=== PATIENT | male | born 1975 | race African-American/Black ===

== ENCOUNTER 2022-09-01 16:02 | Outpatient (REF) | payer SELFPAY ==
[2022-09-01 17:41] LABS: MANUAL DIFF FLAG NO
[2022-09-01 17:51] LABS: Basophils Absolute Auto 0.1 X10*3/uL (0.0-0.2); Eosinophils Absolute Auto 0.3 X10*3/uL (0.0-0.4); Eosinophils Percent Auto 6.9 % (0-4); Hematocrit 38.6 % (42.0-52.0); Hemoglobin 12.8 g/dl (14.0-18.0); Imm Gran Abs Auto 0.01 X10*3/uL (0.00-0.03); Imm Gran Pct Auto 0.2 % (0.0-0.4); Lymphocytes Absolute Auto 1.7 X10*3/uL (1.2-4.9); Lymphocytes Percent Auto 33.4 % (20-40); Mean Corpuscular HGB Conc 33.2 g/dl (31.0-36.0); Mean Corpuscular Hemoglobin 32.2 pg (27.0-33.0); Mean Corpuscular Volume 97.2 fL (80.0-98.0); Mean Platelet Volume 11.1 fL (9.4-12.4); Monocytes Absolute Auto 0.7 X10*3/uL (0.1-1.2); Monocytes Percent Auto 13.4 % (2-11); Neutrophils Absolute Auto 2.2 x10*3/uL (2.0-8.3); Neutrophils Percent Auto 45.1 % (45-73); Platelet Count 142 X10*3/uL (160-400); Red Blood Count 3.97 X10*6/uL (4.60-5.80); Red Cell Distribution Width 11.3 % (11.0-16.0); White Blood Count 4.9 X10*3/uL (4.8-10.8)
[2022-09-01 18:14] LABS: Anion Gap 14 (12-20); Blood Urea Nitrogen 15 mg/dL (9-16); Calcium 9.9 mg/dL (8.4-10.2); Carbon Dioxide 28 mmol/L (22-29); Chloride 102 mmol/L (96-108); Cholesterol 153 mg/dL; Estimated Glomerular Filt Rate > 60; Glucose Random 100 mg/dL (60-115); HDL Cholesterol 40 mg/dL; LDL Cholesterol Calculated 98 mg/dl; Potassium 4.2 mmol/L (3.3-5.1); Sodium 140 mmol/L (135-145); Triglycerides 78 mg/dL
[2022-09-01 18:29] LABS: Free T4 (Free Thyroxine) 1.08 ng/dL (0.71-1.85); Vitamin D 25-OH Total 24.5 ng/mL (>30)
[2022-09-03 06:19] LABS: ~HepC Num1 13.83 S/CO (0.00-0.79); ~Hepatitis C Antibody Reactive (Nonreactive)
[2022-09-03 06:20] LABS: HIV AB/AG Nonreactive (Nonreactive); HIV Num 1 0.05 S/CO (0.00-0.99)
[2022-09-04 15:29] LABS: HCV Log PCR <1.18 NOT DETECTED Log IU/mL (NOT DETECTED); HepC Viral Load <15 NOT DETECTED IU/mL (NOT DETECTED)
== END 2022-09-01 16:03 | disposition home or self-care (01) ==
LOC: HO.HHCL 16:02
PROVIDERS: Visit Provider Family Medicine
DX: R63.6 Underweight (principal); F11.20 Opioid dependence, uncomplicated; D61.818 Other pancytopenia
CPT/HCPCS: 36415; 80048; 80061; 82306; 84439; 85025; 86803; 87389; 87522

== ENCOUNTER 2024-07-13 11:15 | Outpatient (REF) | payer SELFPAY ==
--- OUTSIDE RECORDS SUMMARY | 2024-07-13 11:19 | XMS_ITS | Encounter Summary ---
Author Organization [employer] Address [address] [place] [address] Care Team Providers Care Research Assistant Professor Name Role Phone Abi Barraza MD Primary Care Provider + [phone] Jameson Huerta MD Unavailable [phone] Reason for Visit * Reason Comments Med Refill Encounter Details Date Type Department Care Team ([facility] st Contact Info) Description 02/08/2023 Refill [facility] MEDICINE [address] [place], [place] [phone] Jameson Huerta MD [address] [place], [place] [phone] Uncomplicated opioid dependence (CMS/HCC) Social History Tobacco Use Types Packs/Day Years Used Date Smoking Tobacco: Every Day Cigarettes Passive Smoke Exposure: Current Smokeless Tobacco: Never Sex and Gender Information Value Date Recorded Sex Assigned at Male 12/21/2021 10:19 AM EDT Legal Sex Male 10:19 AM EDT Gender Identity Male 12/21/2021 10:19 AM EDT Sexual Orientation Straight 12/21/2021 10 :19 AM EDT documented as of this encounter Plan of Treatment Not on file documented as of this encounter Visit Diagnoses Diagnosis Uncomplicated opioid dependence (CMS/HCC) documented in this encounter Care Teams Research Assistant Professor Relationship Specialty Start Date End Date Abi Barraza MD [address] [place], [place] [phone] PCP - General Family Medicine 03/09/13 Jameson Huerta MD [address] [place] [address] Referring Physician Addiction Medicine 04/02/24 documented as of this encounter
[2024-07-13 13:22] LABS: MANUAL DIFF FLAG NO
[2024-07-13 13:39] LABS: Basophils Percent Auto 0.7 % (0-2); Eosinophils Absolute Auto 0.1 X10*3/uL (0.0-0.4); Eosinophils Percent Auto 2.4 % (0-4); Hematocrit 39.5 % (42.0-52.0); Hemoglobin 13.3 g/dl (14.0-18.0); Lymphocytes Absolute Auto 1.6 X10*3/uL (1.2-4.9); Mean Corpuscular HGB Conc 33.7 g/dl (31.0-36.0); Mean Corpuscular Hemoglobin 32.5 pg (27.0-33.0); Mean Corpuscular Volume 96.6 fL (80.0-98.0); Mean Platelet Volume 11.5 fL (9.4-12.4); Monocytes Absolute Auto 0.5 X10*3/uL (0.1-1.2); Monocytes Percent Auto 11.3 % (2-11); Neutrophils Absolute Auto 2.3 x10*3/uL (2.0-8.3); Neutrophils Percent Auto 50.6 % (45-73); Platelet Count 141 X10*3/uL (160-400); Red Blood Count 4.09 X10*6/uL (4.60-5.80); Red Cell Distribution Width 11.3 % (11.0-16.0); White Blood Count 4.5 X10*3/uL (4.8-10.8)
[2024-07-13 14:12] LABS: Alanine Aminotransferase 16 U/L (0-40); Albumin Level 4.6 g/dL (3.5-5.0); Alkaline Phosphatase 57 U/L (39-117); Anion Gap 11 (12-20); Aspartate Amino Transferase 24 U/L (5-37); Bilirubin Direct 0.3 mg/dL (0.0-0.5); Bilirubin Total 0.8 mg/dL (0.0-1.0); Blood Urea Nitrogen 13 mg/dL (9-16); Carbon Dioxide 29 mmol/L (22-29); Chloride 105 mmol/L (96-108); Cholesterol 153 mg/dL (<200); Estimated Glomerular Filt Rate > 60; Glucose Random 84 mg/dL (60-115); HDL Cholesterol 40 mg/dL (>40); Iron 186 mcg/dL (45-160); LDL Cholesterol Calculated 100 mg/dL (<100); Percent Iron Saturation 59 % (15-50); Potassium 4.5 mmol/L (3.3-5.1); Sodium 140 mmol/L (135-145); Total Iron Binding Capacity 313 mcg/dL (228-428); Total Protein 7.5 g/dL (6.5-8.0); Triglycerides 65 mg/dL (<150); Unsaturated Iron Binding 127 ug/dL
[2024-07-13 14:31] LABS: Ferritin 181 ng/mL (20-250); TSH reflex Free T4 1.58 uIU/mL (0.32-4.0)
[2024-07-13 14:34] LABS: Vitamin B12 583 pg/mL (200-900)
[2024-07-13 15:00] LABS: CT PCR NOT DETECTED (Not Detect.); NG PCR NOT DETECTED (Not Detect.)
[2024-07-16 08:21] LABS: HIV AB/AG Nonreactive (Nonreactive); HIV Num 1 0.05 S/CO (0.00-0.99)
[2024-07-17 11:13] LABS: Alpha Fetoprotein 1.7 ng/mL (<6.1)
== END 2024-07-13 11:16 | disposition home or self-care (01) ==
LOC: HO.HHCL 11:15
PROVIDERS: Visit Provider Family Medicine
DX: Z13.220 Encounter for screening for lipoid disorders (principal); D64.9 Anemia, unspecified; R76.8 Other specified abnormal immunological findings in serum; Z13.6 Encounter for screening for cardiovascular disorders
CPT/HCPCS: 80048; 80061; 80076; 82105; 82607; 82728; 82746; 83540; 84443; 85025; 87389; 87491; 87591

== ENCOUNTER 2024-11-14 14:39 | Outpatient (AMB) | payer SELFPAY ==
--- NOTE | 2024-11-14 14:42 | A.OFFVIS_ITS ---
Vital Signs 3 11/14/24 14:45 Height 6 ft Weight 148 lb 9.465 oz BMI 20.2 BP 120/82 Blood Pressure Location Lt brachial Position Sitting Pulse 65 Intake Visit Reasons: colo screening Intake Note: New patient in office today for colonoscopy screening. CC: Patient reports having constipation. Denies having other GI symptoms today. Director Investment Banking Required: Yes Accompanied by: Self / Same As Patient Allergies No Known Allergies (No Known Allergies*) Allergy (Verified 11/14/24 14:47) HPI HPI colo screening: Details: 49-year-old male here for preprocedural meeting to discuss a screening colonoscopy. He is referred by [facility]. PMX History of opioid dependence -on Suboxone History of hepatitis-C infection status post SVR Constipation Erectile dysfunction Pancytopenia * SURGICAL HISTORY CHOLECYSTECTOMY-LATIA * ALLERGIES: NKDA * Sabirmedical LABS: Laboratory Tests 07/13/24 11:17 WBC 4.5 L Hgb 13.3 L Hct 39.5 L MCV 96.6 MCH 32.5 Plt Count 141 L Estimated GFR > 60 Total Bilirubin 0.8 Direct Bilirubin 0.3 AST 24 ALT 16 Alkaline Phosphatase 57 TSH 1.58 TODAY'S VISIT [facility] #[id number] This is his first colonoscopy Bowel or upper GI problems: CIC ? roids and occasional rectal bleeding no upper GI problems. His constipation is severe he will frequently go more than a week without moving his bowels and when he does he has to strain. Even then he has scant return a very small hard stools. In the past he has tried senna and Colace which worked at 1st but then stopped being effective for him. He has never tried bisacodyl. I will give him a trial of this and also provide him a hemorrhoid cream for his rectal itching and instructed him how to use it with the rectal applicator to get the best sustained results. Problems with anes or sed: On Suboxone no prior problems with anesthesia or sedation. Cardiac or respiratory problems. He denies any problems ID problems. He has a history of hepatitis-C but is status post treatment with sustained viral response. FHX: No known family history of colon cancer or polyps. [facility] Medical History (Updated 11/14/24 @ 17:59 by LLUVIA Hirsch) Constipation Surgical History (Updated 11/09/24 @ 10:55 by LLUVIA Hirsch) History of cholecystectomy Social History (Updated 11/14/24 @ 14:50 by ALEXANDRA Krueger) Alcohol intake: current Alcohol intake frequency: holidays/special occasions only Patient Tobacco Use Status: Current everyday Tobacco user Cigarettes Per Day: 5 Years Smoked: 20 + Substance Use Type: Marijuana Review of Systems Const Denies fatigue, Denies fever(s), Denies night sweats, Denies poor appetite and Denies weight loss ENT Reports Normal hearing present, Denies dental pain, Denies dysphagia, Denies hearing loss, Denies mouth pain, Denies odynophagia, Denies throat swelling, Denies tongue swelling and Reports other (Dentition adequate) Card Reports no additional complaints Resp Reports no additional complaints GI Details: Rectal itching Denies abdominal pain, Denies melena, Denies bloating, Reports hematochezia, Reports constipation, Denies GI cramping, Denies dysphagia, Denies excessive flatus, Denies early satiety, Denies heartburn, Denies diarrhea, Denies nausea, Denies odynophagia, Denies vomiting and Denies hematemesis Skin/Breast Denies pruritus, Denies lesions, Denies rash and Denies jaundice Neuro Reports Normal hearing present and Denies Abnormal speech present Endo Denies fatigue Aller/Immun Denies throat swelling and Denies tongue swelling Physical Exam Vital Signs: Last Vital Signs Pulse 65 11/14/24 14:45 BP 120/82 11/14/24 14:45 BMI result Body Mass Index 20.2 Const General: cooperative, no acute distress, well developed and well groomed Nutritional Appearance: well nourished and thin Orientation/consciousness: oriented to person, oriented to place and oriented to time Limitations: language barrier HEENT Head: Yes normocephalic and Yes atraumatic Eyes General: appearance normal, both eyes and all related structures Pupils: Equal, round and reactive pupils present Neck Neck: Yes normal visual inspection and Yes no lymphadenopathy Thyroid: Thyroid normal Resp Effort & Inspection: normal respiratory effort and able to speak in complete sentences Auscultation: clear to auscultation bilaterally Cardio Rate: regular rate Rhythm: regular rhythm Heart sounds: Normal, physiologic split S2 sound present Peripheral pulses: radial pulses present and posterior tibial pulses present GI Inspection: No distended and No Abdominal panniculus present Palpation (GI): Soft to palpation, nontender, no guarding, not rigid and No hepatosplenomegaly present Percussion: Yes normal to percussion Auscultation: normal bowel sounds Rectal Exam - Male: Yes deferred Abdomen image: 2 1. surgical scars 2. Skin General skin exam: no rashes or lesions noted, turgor normal, skin not dry, no jaundice, No spider nevi and no striae Rashes: no rashes Nails: normal Neuro General: oriented to person, oriented to place and oriented to time Cranial nerves: Yes Equal, round and reactive pupils present and Yes Normal hearing present Speech: No Abnormal speech present Extrem General: Yes normal to inspection, No clubbing, No cyanosis and No edema Psych Appearance: grossly normal and well kempt Mental Status: mental status grossly normal Speech and movement: Normal speech and movement present Affect: normal affect Attitude: cooperative Thought process: Normal thought process present and not confabulating Thought content: Normal thought content present Insight: Fair insight present (Psych) Judgement: Fair judgement present (Psych) Assessment & Plan Assessment & Plan (1) Pre-op examination: Code(s): Z01.818 - Encounter for other preprocedural examination Category: Medical (2) Chronic idiopathic constipation: Code(s): K59.04 - Chronic idiopathic constipation Category: Medical (3) Opioid dependence on agonist therapy: Comment: ON SUBOXONE Code(s): F11.20 - Opioid dependence, uncomplicated Category: Medical Plan [facility] #[id number] This is his first colonoscopy Bowel or upper GI problems: CIC ? roids and occasional rectal bleeding no upper GI problems. His constipation is severe he will frequently go more than a week without moving his bowels and when he does he has to strain. Even then he has scant return a very small hard stools. In the past he has tried senna and Colace which worked at 1st but then stopped being effective for him. He has never tried bisacodyl. I will give him a trial of this and also provide him a hemorrhoid cream for his rectal itching and instructed him how to use it with the rectal applicator to get the best sustained results. Problems with anes or sed: On Suboxone no prior problems with anesthesia or sedation. Cardiac or respiratory problems. He denies any problems ID problems. He has a history of hepatitis-C but is status post treatment with sustained viral response. FHX: No known family history of colon cancer or polyps. We will work on his constipation since this would impact his ability to clear for colonoscopy and also what assure him better quality of life. Return office visit in 4 weeks Orders: Referrals 2 GI Procedure Notification Z01.818 - Encounter for other preprocedural examination Medications: New 2 hydrocortisone 2.5% (Proctosol HC) BE SURE TO INCLUDE RECTAL APPICATOR!! 1 appl MT BID 30 grams 6RF hemorrhoids K64.9 - Unspecified hemorrhoids peg 3350-electrolytes 236-22.74-6.74 -5.86 gram (Golytely) until fecal effluent is clear; do not exceed a total volume of 2,000 mL 240 mL PO Q10M 4,000 mL 0RF 1 day Z12.11 - Encounter for screening for malignant neoplasm of colon bisacodyl (Dulcolax (bisacodyl)) 10 mg (2 x 5 mg) PO BEDTIME 2 days 4 tabs 0RF bisacodyl (Dulcolax (bisacodyl)) 10 mg (2 x 5 mg) PO BEDTIME 60 tabs 6RF 30 days Coding Level of Care Code New Pt Level 3 (04535) Diagnoses Pre-op examination Z01.818 Chronic idiopathic constipation K59.04 Opioid dependence on agonist therapy F11.20
[2024-11-14 14:45] VITALS: BP 120/82; PULSE 65; BMI 20.2
--- OUTSIDE RECORDS SUMMARY | 2024-11-14 17:13 | XMS_ITS | Encounter Summary ---
Author Organization [employer] Address [address] [place] [address] Care Team Providers Care Virtualization Consultant Name Role Phone Abi Barraza MD Primary Care Provider + [phone] Jameson Huerta MD Unavailable [phone] Reason for Visit * Reason Comments Med Refill Encounter Details Date Type Department Care Team ([facility] st Contact Info) Description 09/26/2023 Refill [facility] MEDICINE [address] [place], [place] [phone] Jameson Huerta MD [address] [place], [place] [phone] Uncomplicated opioid dependence (CMS/HCC) Social History Tobacco [...] (CMS/HCC) documented in this encounter Care Teams Virtualization Consultant Relationship Specialty Start Date End Date Abi Barraza MD [address] [place], [place] [phone] PCP - General Family Medicine 03/09/13 Jameson Huerta MD [address] [place] [address] Referring Physician Addiction Medicine 04/02/24 documented as of this encounter
--- OUTSIDE RECORDS SUMMARY | 2024-11-14 17:13 | XMS_ITS | Encounter Summary ---
Author Organization [employer] Address [address] [place] [address] Care Team Providers Care Windows Vmware Engineer Name Role Phone Abi Barraza MD Primary Care Provider + [phone] Jameson Huerta MD Unavailable [phone] Reason for Visit * Reason Comments Med Refill Encounter Details Date Type Department Care Team ([facility] st Contact Info) Description 12/14/2022 Refill [facility] MEDICINE [address] [place], [place] [phone] Jameson Huerta MD [address] [place], [place] [phone] Uncomplicated opioid dependence (CMS/HCC) Social History Tobacco [...] (CMS/HCC) documented in this encounter Care Teams Windows Vmware Engineer Relationship Specialty Start Date End Date Abi Barraza MD [address] [place] [address] PCP - General Family Medicine 03/09/13 Jameson Huerta MD [address] [place] [address] Referring Physician Addiction Medicine 04/02/24 documented as of this encounter
--- OUTSIDE RECORDS SUMMARY | 2024-11-14 17:13 | XMS_ITS | Encounter Summary ---
Author Organization [email or web address] Address [address] [place] [address] Care Team Providers Care Plater Printed Circuit Board Panels Name Role Phone Abi Barraza MD Primary Care Provider + [phone] Jameson Huerta MD Unavailable [phone] Reason for Visit * Reason Comments Med Refill Encounter Details Date Type Department Care Team ([facility] st Contact Info) Description 02/08/2023 Refill [facility] MEDICINE [address] [place], [place] [phone] Jameson Huerta MD [address] [place], [place] [phone] Uncomplicated opioid dependence (CMS/HCC) Social History Tobacco [...] (CMS/HCC) documented in this encounter Care Teams Plater Printed Circuit Board Panels Relationship Specialty Start Date End Date Abi Barraza MD [address] [place], [place] [phone] PCP - General Family Medicine 03/09/13 Jameson Huerta MD [address] [place] [address] Referring Physician Addiction Medicine 04/02/24 documented as of this encounter
--- OUTSIDE RECORDS SUMMARY | 2024-11-14 17:13 | XMS_ITS | Clinical Summary ---
Author Organization [employer] Address [address] [place] [address] [address] [place] [address] Care Team Providers Care Stitching Department Supervisor Name Role Phone Abi Barraza MD Primary Care Provider [phone] Jameson Huerta MD Unavailable [phone] Allergies No known active allergies Medications buprenorphine-nalo xone (Suboxone) 2-0.5 MG per sublingual filmIndications:Un complicated opioid dependence (CMS/HCC) Place 1 Film under the tongue Once per day. Take as directed. 21 Film 1 07/27/19 24 Active naloxone (Narcan) 4 mg/0.1 mL nasal sprayIndications:U ncomplicated opioid dependence (CMS/HCC) Administer 1 spray (4 mg) into affected nostril(s) if needed for opioid reversal. 2 each 1 07/14/19 25 Active Multiple Vitamin (multivitamin) tabletIndications: Dietary counseling Take 1 tablet by mouth Once per day. 90 tablet 3 07/14/19 25 Active erythromycin (Romycin) 5 MG/GM ophthalmic ointmentIndication s:Acute conjunctivitis of both eyes, unspecified acute conjunctivitis type Apply to affected eye(s) 3 times daily for 7 days. Apply Amount per Dose: 0.25 inch (~0.5 cm) per dose. 3.5 g 11/02/19 25 025 Active Problems Problem Noted Date Diagnosed Date Tobacco use disorder 07/13/2024 Overview (07/13/2024): -Cigg/day: 5 cigarettes/day -Age started: -Total years smoking: -Pack year history: Encouraged smoking cessation resources such as pharmacomtherapy, [facility] smoking cessation group, and [facility] pharmacy smoking cessation clinic [facility]ed [facility] annual lung cancer screening with low dose CT in people who meet the following criteria: -ages 50 to 80 years. -have a 20 pack-year smoking history. -currently smoke cigarettes or quit within the past 15 years. -LDCT: Will evaluate at 50 years of age. Assessment & Plan (07/13/2024 4:33 PM EDT): -Cigg/day: 5 cigarettes/day -Age started: -Total years smoking: -Pack year history: Encouraged smoking cessation resources such as pharmacomtherapy, [facility] smoking cessation group, and [facility] pharmacy smoking cessation clinic Discussed [facility] recommends annual lung cancer screening with low dose CT in people who meet the following criteria: -ages 50 to 80 years. -have a 20 pack-year smoking history. -currently smoke cigarettes or quit within the past 15 years. -LDCT: Will evaluate at 50 years of age. Screening cholesterol level 07/13/2024 Overview (07/13/2024): Lab Results Component Value Date CHOL 153 07/13/2024 CHOL 153 09/01/2022 TRIG 65 07/13/2024 TRIG 78 09/01/2022 HDL 40 (L) 07/13/2024 HDL 40 09/01/2022 LDLCHOLCAL 100 (H) 07/13/2024 LDLCHOLCAL 98 09/01/2022 -continue lifestyle modification -ordered repeat labs 07/13/24 Assessment & Plan (07/13/2024 4:31 PM EDT): Lab Results Component Value Date CHOL 153 07/13/2024 CHOL 153 09/01/2022 TRIG 65 07/13/2024 TRIG 78 09/01/2022 HDL 40 (L) 07/13/2024 HDL 40 09/01/2022 LDLCHOLCAL 100 (H) 07/13/2024 LDLCHOLCAL 98 09/01/2022 -continue lifestyle modification -ordered repeat labs 07/13/24 Anemia 07/13/2024 Overview (07/13/2024): Lab Results Component Value Date FERRITIN 181 07/13/2024 HGB 13.3 (L) 07/13/2024 HGB 12.8 (L) 09/01/2022 -ordered repeat HGB and Ferritin 07/13/24 Assessment & Plan (07/13/2024 4:32 PM EDT): Lab Results Component Value Date FERRITIN 181 07/13/2024 HGB 13.3 (L) 07/13/2024 HGB 12.8 (L) 09/01/2022 -ordered repeat HGB and Ferritin 07/13/24 Cardiac risk counseling 06/29/2023 Overview (07/13/2024): Calculated 07/13/24: low risk The 10-year ASCVD risk score (Marilu CONTRERAS, et al., 2019) is: 4.5% Values used to calculate the score: Age: 49 years Sex: Male Is Non- : No Diabetic: No Tobacco smoker: Yes Systolic Blood Pressure: 106 mmHg Is BP treated: No HDL Cholesterol: 40 mg/dL Total Cholesterol: 153 mg/dL LDL 98 08/2022 -Tobacco cessation: not applicable -Statin therapy:N/A -Importance of moderate physical activity and nutrition interventions discussed. Hepatitis C antibody test positive 09/02/2022 Overview (09/02/2022): -S/p successful treatment -US 2015 without hepatic masses -AFP 1.5 10/2018 Assessment & Plan (07/13/2024 4:31 PM EDT): -S/p successful treatment -US 2015 without hepatic masses -AFP 1.5 10/2018 Other specified health status 09/01/2022 Overview (07/13/2024): -next physical exam due after 07/13/25 -eye care: referral done 09/01/2022 -dental home is [facility] -health care proxy given and filed 07/13/24 Assessment & Plan (07/13/2024 4:33 PM EDT): -next physical exam due after 07/13/25 -eye care: referral done 09/01/2022 -dental home is [facility] -health care proxy given and filed 07/13/24 Assessment & Plan (09/01/2022 3:32 PM EDT): -next physical exam due after -eye care: referral done 09/01/2022. -dental home is [facility]. Colon cancer screening 09/01/2022 Overview (07/13/2024): -referred to GI placed 09/01/2022 -re-referred to GI for colonoscopy 07/13/24 Assessment & Plan (07/13/2024 4:31 PM EDT): -referred to GI placed 09/01/2022 -re-referred to GI for colonoscopy 07/13/24 Assessment & Plan (09/01/2022 3:32 PM EDT): Referred 09/01/2022. Pancytopenia 12/14/2012 Overview (07/13/2024): Seen by oncology. 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 Hgb 12.8 with ferritin 159 2015 Lab Results Component Value Date FERRITIN 181 07/13/2024 HGB 13.3 (L) 07/13/2024 HGB 12.8 (L) 09/01/2022 Stable Assessment & Plan (07/13/2024 4:32 PM EDT): Seen by oncology. 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 Hgb 12.8 with ferritin 159 2015 Lab Results Component Value Date FERRITIN 181 07/13/2024 HGB 13.3 (L) 07/13/2024 HGB 12.8 (L) 09/01/2022 Stable Assessment & Plan (09/01/2022 2:45 PM EDT): Seen by oncology. 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 Stable. Opioid dependence 09/29/2012 Overview (07/13/2024): Doing well on Suboxone. Assessment & Plan (07/13/2024 4:32 PM EDT): Doing well on Suboxone. Assessment & Plan (09/01/2022 2:46 PM EDT): Doing well on Suboxone. Encounters Date Type Department Care Team Description 11/01/2024 8:40 AM EDT Office Visit [facility] [address] [address] Tommy Fam MD Acute conjunctivitis of both eyes, unspecified acute conjunctivitis type (Primary Dx) 11/01/2024 Travel from Last 3 Months Immunizations Immunization Administration Dates Next Due Hep B, adult 07/13/2024,09/01/2022 Influenza injectable quadrivalent preservative f ree 12/20/2016 Influenza, Split (incl. purified surface antigen ) 12/14/2012 Pneumococcal Conjugate PCV 20 07/13/2024 Pneumococcal Polysaccharide PPSV23 02/20/2016 TD (adult), 2 Lf tetanus tox oid, preservative free, adsorbed 08/04/2006 Tdap 07/13/2024,02/28/2014 Family History Medical History Relation Name Comments Diabetes Mother Hypertension Mother Relation Name Status Comments Mother Social History Tobacco Use Types Packs/Day Years Used Date Smoking Tobacco: Every Day Cigarettes Passive Smoke Exposure: Current Smokeless Tobacco: Never Tobacco Cessation:Ready to Q uit: Not Asked; Counseling Given: Not Answered Depression Answer Date Recorded Patient Health Questionnaire-9 Score 4 07/13/2024 Patient Health Questionnaire-9 Score 4 07/13/2024 Last PHQ-9: Questionnaire Data Not on file 0 07/13/2024 Housing Stability Answer Date Recorded What is your housing situation today? I have isabel carlisle 07/06/[address] you li ve. Do you have problems with any of the following? None of the above 07/06/2024 Food Insecurity Answer Date Recorded Within the past 12 months, y ou worried that your food would run out before you got money to buy more: Never True 07/06/2024 Within the past 12 months,th e food you bought just didn't last and you didn't have enough money to get more: Never True Transportation Answer Date Recorded In the past 12 months, has l ack of transportation kept you from medical appts, meetings, work or from getting things needed for daily living? No 07/06/2024 Utilities Answer Date Recorded In the past 12 months, has t he electric, gas, oil or water company threatened to shut off services in your home? No 07/06/2024 Depression Answer Date Recorded Patient Health Questionnaire-2 Score 2 07/13/2024 Internet Access Answer Date Recorded Internet Access Q1 Yes 07/06/2024 Internet Access Q2 Not on file 07/06/2024 Sex and Gender Information Value Date Recorded Sex Assigned at Male 12/21/2021 10:19 AM EDT Legal Sex Male 10:19 AM EDT Gender Identity Male 12/21/2021 10:19 AM EDT Sexual Orientation Straight 12/21/2021 10 :19 AM EDT Last Filed Vital Signs Vital Sign Reading Time Taken Comments Blood Pressure 129/78 11/01/2024 8:37 AM EDT Pulse 61 11/01/2024 8:37 AM EDT Temperature 36.4 C (97.6 F) 11/01/2024 8:37 AM EDT Respiratory Rate 12 11/01/2024 8:37 AM EDT Oxygen Saturation 98% 09/01/2022 3:18 PM EDT Inhaled Oxygen Concentration - - Weight 67.5 kg (148 lb 12.8 oz) 11/01/2024 8:37 AM EDT Height 182.9 cm (6') 11/01/2024 8:37 AM EDT Body Mass Index 20.18 11/01/2024 8:37 AM EDT Plan of Treatment Health Maintenance Due Date Last Done Comments CT Colonography 1975 Colonoscopy 1975 Colorectal Cancer Screening 1975 FIT DNA/Cologuard 1975 FIT 1975 FOBT 1975 Sigmoidoscopy 1975 Family Planning (PISQ) 1990 Hepatitis B Vaccines (3 of 3 - 19+ 3-dose series) 09/07/2024 07/13/2024, 09/01/2022 COVID-19 Vaccine ( season) 2024 03/18/2020, 02/26/2020 Influenza Vaccine (#1) 2024 12/20/2016, 2012 Zoster Vaccines (1 of 2) 2025 SDOH Screening 07/06/2025 07/06/2024 Alcohol/Substance Use Screening 07/13/2025 07/13/2024 Depression Screening 07/13/2025 07/13/2024, 07/14/19 25 Disability Screening 07/13/2025 07/13/2024 Tobacco Screening 11/01/2025 11/01/2024 Lipid Panel 07/13/2029 07/13/2024, 09/01/2022 DTaP/Tdap/Td Vaccines (3 - Td or Tdap) 07/13/2034 07/13/2024, 02/28/2014, 08/04/2006 RSV Patients and Patients Aged 60 years or older (1 - 1-dose 75+ series) 2050 Hepatitis C Screening Completed 09/03/2022 , 09/01/2022, 01/19/2022, Additional history exists HIV Screening Completed 07/13/2024, 08/21, 01/19/2022, Additional history exists Pneumococcal Vaccine: Pediatrics (0 to 5 Years) and At-Risk Patients (6 to 49) Years Completed 07/13/2024, 02/20/2016 HIB Vaccines Aged Out No longer eligi ble based on patient's age to complete this topic HPV Vaccines Aged Out No longer eligi ble based on patient's age to complete this topic Hepatitis A Vaccines Aged Out No long er eligible based on patient's age to complete this topic IPV Vaccines Aged Out No longer eligi ble based on patient's age to complete this topic Meningococcal B Vaccine Aged Out No l onger eligible based on patient's age to complete this topic Meningococcal Vaccine Aged Out No cesario julieth eligible based on patient's age to complete this topic RSV under 20 months Aged Out No longe r eligible based on patient's age to complete this topic Rotavirus Vaccines Aged Out No longer eligible based on patient's age to complete this topic Procedures Procedure Name Priority Date/Time Associated Diagnosis Comments HIV 1/2 ANTIGEN/ANTIBODY, FOURTH GENERATION W/RFL Routine 07/13/2024 11:17 AM EDT Routine screening for STI (sexually transmitted infection) LIPID PANEL, STANDARD Routine 07/13/2024 11:17 AM EDT Screening cholesterol level HEPATITIS C VIRAL RNA, QUANTITATIVE, REAL-TIME PCR Routine 09/03/2022 4:12 PM EDT from Last 3 Months or Most Recently Relevant to Health Maintenance Results * HIV-1/2 Antigen and Antibodies, Fourth Generation, with Reflexes (07/13/2024 11:17 AM EDT) HIV AB/AG Nonreactive Nonreactive [facility] Comment:HIV-1 p24 Ag and/or HIV-1/HIV-2 Ab not detected.A test result that is nonreactive does not exclude thepossibility of exposure to or infection with HIV-1 and/orHIV-2. Nonreactive results in this assay for individualswith prior exposure to HIV-1 and/or HIV-2 may be due toantigen and antibody levels that are below the limit ofdetection of this assay.The Formula [employer] HIV Ag/Ab Combo assay result andsupplemental assay results should be interpreted inconjunction with the patient's clinical presentation,history and other laboratory results. If the results areinconsistent with clinical evidence, additional testing issuggested to confirm the result. Blood Venous blood specimen / Unknown 07/13/2024 11:17 AM EDT 07/13/2024 1:24 PM EDT us Abi Barraza MD LAB BLOOD ORDERABLES Final Result [facility] [address] [place], [place] [phone] * (ABNORMAL) Lipid Panel, Standard (07/13/2024 11:17 AM EDT) Triglycerides 65 <150 mg/dL [facility] Comment:Desirable Triglyceri de: less than 150 mg/dLBorderline High Triglyceride 150-199 mg/dLHigh Triglyceride: 200-499 mg/dLVery High Triglyceride: greater than or equal to 5OO mg/dL Cholesterol 153 <200 mg/dL [facility] Comment:Desirable Cholestero l: less than 200 mg/dLBorderline High Cholesterol: 200-239 mg/dLHigh Cholesterol: greater than 239 mg/dL LDL Cholesterol Calculated 100(H) <100 mg/dL [facility] Comment:Desirable LDL: less than 100 mg/dLNear Optimal/Above Optimal LDL: 110- 129 mg/dLBorderline High LDL: 130-159 mg/dLHigh LDL: 160-189 mg/dLVery High LDL: greater than or equal to 190 mg/dL HDL Cholesterol 40(L) >40 mg/dL [facility] Comment:Desirable HDL: great er than 40 mg/dL Note: This HDL assay may give artificially low results in patients with liver disease. Blood Venous blood specimen / Unknown 07/13/2024 11:17 AM EDT 07/13/2024 1:24 PM EDT Abi Barraza MD LAB BLOOD ORDERABLES Final Result [facility] [address] [place] [phone] * Hepatitis C Viral RNA, Quantitative, Real-Time PCR (09/03/2022 4:12 PM EDT) Hepatitis C Viral Load <15 NOT DETECTED NOT DETECTED IU/mL [facility] HCV Log PCR <1.18 NOT DETECTED NOT DETECTED Log IU/mL [facility] Comment:This test was perfor med using Real-Time Polymerase ChainReaction.Reportable Range: 15 IU/mL to 100,000,000 IU/mL(1.18 Log IU/mL to 8.00 Log IU/mL).The analytical performance characteristics of thisassay have been determined by [employer].The modifications have not been cleared or approved bythe FDA. This assay has been validated pursuant to theCLIA regulations and is used for clinical purposes.For more information on this test, go to:http://education.[employer]/faq/FTX35j4(This link is being provided for informational/educational purposes only.)THIS TEST WAS PERFORMED AT:[employer] [place] [phone] SHAW MD 09/03/2022 4:12 PM EDT 09/03/2022 4:12 PM EDT [facility] External Provider LAB BLO OD ORDERABLES Final Result [facility] [address] [place] [address] [phone] from Last 3 Months or Most Recently Relevant to Health Maintenance Insurance [facility] Advance Directives Documents on File Type Date Recorded Patient Dispersion Mixer Expl anation Advance Directives and Living Will 07/18/2024 Health Care Proxy 07/13/24 Care Teams Stitching Department Supervisor Relationship Specialty Start Date End Date Abi Barraza MD [address] [place] [id number] PCP - General Family Medicine 03/09/13 Jameson Huerta MD [address] [place] [phone] Referring Physician Addiction Medicine 04/02/24
--- OUTSIDE RECORDS SUMMARY | 2024-11-14 17:13 | XMS_ITS | Encounter Summary ---
Author Organization [employer] Address [address] [place] [id number] Care Team Providers Care Flavoring Machine Operator Name Role Phone Abi Barraza MD Primary Care Provider + [phone] Jameson Huerta MD Unavailable [phone] Reason for Visit * Reason Comments Med Refill Encounter Details Date Type Department Care Team (Late st Contact Info) Description 08/24/2022 Refill [facility] [address] [place], [place] [phone] Jameson Huerta MD [address] [place], [place] [phone] Uncomplicated opioid dependence (CMS/HCC) Social History Tobacco Use Types Packs/Day Years Used Date Smoking Tobacco: Never Assessed Sex and Gender Information Value Date Recorded [...] (CMS/HCC) documented in this encounter Care Teams Flavoring Machine Operator Relationship Specialty Start Date End Date Abi Barraza MD [address] [place] [address] [phone] PCP - General Family Medicine 03/09/13 Jameson Huerta MD [address] [place] [id number] Referring Physician Addiction Medicine 04/02/24 documented as of this encounter
== END 2024-11-14 15:28 | disposition home or self-care (01) ==
LOC: HO.HGI 14:39
PROVIDERS: PCP Family Medicine; Visit Provider Nurse Practitioner
DX: Z01.818 Encounter for other preprocedural examination (principal); Z12.11 Encounter for screening for malignant neoplasm of colon; K59.04 Chronic idiopathic constipation; F11.20 Opioid dependence, uncomplicated
CPT/HCPCS: 99203

== ENCOUNTER → 2024-11-14 14:39 | Outpatient (BNVA) | payer SELFPAY | PROVIDERS: PCP Family Medicine; Visit Provider Nurse Practitioner | DX: Z01.818 Encounter for other preprocedural examination (principal); K59.04 Chronic idiopathic constipation; F11.20 Opioid dependence, uncomplicated | CPT/HCPCS: 99202 ==

== ENCOUNTER 2024-12-20 14:59 | Outpatient (AMB) | payer OTHER, SELFPAY ==
--- NOTE | 2024-12-20 15:13 | MHC.OFFVIS ---
Vital Signs 12/20/24 15:18 Height 6 ft Weight 145 lb 15.136 oz BMI 19.8 BP 112/71 Blood Pressure Location Lt brachial Position Sitting Pulse 59 Intake Visit Reasons: CIC, roids Intake Note: Patient in office today in follow up of CIC and roids. CC: Patient reports doing well with dulcolax and hydrocortisone cream. Employee Development Specialist Required: Yes Accompanied by: Self / Same As Patient Allergies No Known Allergies (No Known Allergies*) Allergy (Verified 12/20/24 15:37) HPI HPI CIC, roids: Details: Assessment & Plan (1) Pre-op examination: Code(s): Z01.818 - Encounter for other preprocedural examination Category: Medical (2) Chronic idiopathic constipation: Code(s): K59.04 - Chronic idiopathic constipation Category: Medical (3) Opioid dependence on agonist therapy: Comment: ON SUBOXONE Code(s): F11.20 - Opioid dependence, uncomplicated Category: Medical Plan Ivorian #[id number] This is his first colonoscopy Bowel or upper GI problems: CIC ? roids and occasional rectal bleeding no upper GI problems. His constipation is severe he will frequently go more than a week without moving his bowels and when he does he has to strain. Even then he has scant return a very small hard stools. In the past he has tried senna and Colace which worked at 1st but then stopped being effective for him. He has never tried bisacodyl. I will give him a trial of this and also provide him a hemorrhoid cream for his rectal itching and instructed him how to use it with the rectal applicator to get the best sustained results. Problems with anes or sed: On Suboxone no prior problems with anesthesia or sedation. Cardiac or respiratory problems. He denies any problems ID problems. He has a history of hepatitis-C but is status post treatment with sustained viral response. FHX: No known family history of colon cancer or polyps. We will work on his constipation since this would impact his ability to clear for colonoscopy and also what assure him better quality of life. Return office visit in 4 weeks Orders: Referrals GI Procedure Notification Z01.818 - Encounter for other preprocedural examination Medications: New hydrocortisone 2.5% (Proctosol HC) BE SURE TO INCLUDE RECTAL APPICATOR!! 1 appl CO BID 30 grams 6RF hemorrhoids K64.9 - Unspecified hemorrhoids peg 3350-electrolytes 236-22.74-6.74 -5.86 gram (Golytely) until fecal effluent is clear; do not exceed a total volume of 2,000 mL 240 mL PO Q10M 4,000 mL 0RF 1 day Z12.11 - Encounter for screening for malignant neoplasm of colon bisacodyl (Dulcolax (bisacodyl)) 10 mg (2 x 5 mg) PO BEDTIME 2 days 4 tabs 0RF bisacodyl (Dulcolax (bisacodyl)) 10 mg (2 x 5 mg) PO BEDTIME 60 tabs 6RF 30 days TODAY'S VISIT [place]vorian #V live [facility] Medical History Constipation Surgical History History of cholecystectomy Social History Alcohol intake: current Alcohol intake frequency: holidays/special occasions only Patient Tobacco Use Status: Current everyday Tobacco user Cigarettes Per Day: 5 Years Smoked: 20 + Substance Use Type: Marijuana Review of Systems Const Denies fatigue, Denies fever(s), Denies night sweats, Denies poor appetite and Denies weight loss Eyes Reports requires corrective lenses ENT Reports Normal hearing present, Denies dental pain, Denies dysphagia, Denies hearing loss, Denies mouth pain, Denies odynophagia, Denies throat swelling, Denies tongue swelling and Reports other (Dentition adequate) GI Details: Denies abdominal pain, Denies melena, Denies bloating, Denies hematochezia, Denies constipation, Denies GI cramping, Denies dysphagia, Denies excessive flatus, Denies early satiety, Denies heartburn, Denies diarrhea, Denies nausea, Denies odynophagia, Denies vomiting and Denies hematemesis Skin/Breast Denies pruritus, Denies lesions, Denies rash and Denies jaundice Neuro Reports Normal hearing present and Denies Abnormal speech present Endo Denies fatigue Aller/Immun Denies throat swelling and Denies tongue swelling Physical Exam Vital Signs: Last Vital Signs Pulse 59 12/20/24 15:18 BP 112/71 12/20/24 15:18 BMI result Body Mass Index 19.8 Const General: cooperative, no acute distress, well developed and well groomed Nutritional Appearance: well nourished, obese and overweight Orientation/consciousness: oriented to person, oriented to place and oriented to time Limitations: No language barrier, ambulation with cane, ambulation with walker and wheelchair HEENT Head: Yes normocephalic and Yes atraumatic Eyes General: appearance normal, both eyes and all related structures Pupils: Equal, round and reactive pupils present Neck Neck: Yes normal visual inspection and Yes no lymphadenopathy Thyroid: Thyroid normal Resp Effort & Inspection: normal respiratory effort and able to speak in complete sentences Auscultation: clear to auscultation bilaterally Cardio Rate: regular rate Rhythm: regular rhythm Heart sounds: Normal, physiologic split S2 sound present Peripheral pulses: radial pulses present and posterior tibial pulses present GI Inspection: No distended and No Abdominal panniculus present Palpation (GI): Soft to palpation, nontender, no guarding, not rigid, No hepatosplenomegaly present and Hepatosplenomegaly present Percussion: Yes normal to percussion Auscultation: normal bowel sounds Rectal Exam - Male: Yes deferred Skin General skin exam: no rashes or lesions noted, turgor normal, skin not dry, no jaundice, No spider nevi and no striae Rashes: no rashes Nails: normal Neuro General: oriented to person, oriented to place and oriented to time Cranial nerves: Yes Equal, round and reactive pupils present and Yes Normal hearing present Speech: No Abnormal speech present Extrem General: Yes normal to inspection, No clubbing, No cyanosis and No edema Psych Thought process: Normal thought process present and not confabulating Thought content: Normal thought content present Insight: Good insight present (Psych) Judgement: Good judgement present (Psych) Assessment & Plan Assessment & Plan (1) Chronic idiopathic constipation: Code(s): K59.04 - Chronic idiopathic constipation Category: Medical (2) Opioid dependence on agonist therapy: Comment: ON SUBOXONE Code(s): F11.20 - Opioid dependence, uncomplicated Category: Medical Plan [place]vorian # - The patient is a 49-year-old male presenting with constipation and hemorrhoids. - The patient started bisacodyl for constipation, which reportedly alleviates symptoms effectively. - Hydrocortisone cream has been utilized for hemorrhoid management with reported beneficial outcomes. - It is noted that the patient requires an learning technologist for effective communication due to limited [place] proficiency. COLONOSCOPY BIOPSY Coding Level of Care Code Est Pt Level 3 (98622) Diagnoses Chronic idiopathic constipation K59.04 Opioid dependence on agonist therapy F11.20
[2024-12-20 15:18] VITALS: BP 112/71; PULSE 59; BMI 19.8
== END 2024-12-20 16:42 | disposition home or self-care (01) ==
PROVIDERS: PCP Family Medicine; Visit Provider Nurse Practitioner
DX: K59.04 Chronic idiopathic constipation (principal); F11.20 Opioid dependence, uncomplicated
CPT/HCPCS: 99213

== ENCOUNTER → 2024-12-20 14:59 | Outpatient (BNVA) | payer OTHER, SELFPAY | PROVIDERS: PCP Family Medicine; Visit Provider Nurse Practitioner | DX: K59.04 Chronic idiopathic constipation (principal); F11.20 Opioid dependence, uncomplicated | CPT/HCPCS: 99212 ==